=== PATIENT | female | born 2000 | race African-American/Black ===

== ENCOUNTER 2022-01-08 08:41 | Emergency (ER) | payer MEDICAID, SELFPAY ==
[2022-01-08 08:39] VITALS: BP 149/102; PULSE 70; RESP 16; O2SAT 99
[2022-01-08] MEDS: ONDANSETRON INJ 4 MG/2 ML VIAL IV PUSH (09:29)
[2022-01-08] MEDS: SODIUM CHLORIDE 0.9% IV 1,000 ML 999 ML IV CONT (09:29)
[2022-01-08 10:04] LABS: Basophils Percent Auto 0.3 % (0.2-1.2); Eosinophils Percent Auto 0.1 % (0-4.4); Hematocrit 43.7 % (37.0-47.0); Hemoglobin 14.8 g/dL (12.0-15.0); Immature Granulocyte Absolute 0.04 K/mm3 (0.00-0.031); Immature Granulocyte Percent A 0.4 % (0-0.5); Lymphocytes Absolute Auto 1.11 K/mm3 (0.9-3.2); Lymphocytes Percent Auto 11.5 % (18.3-44.2); Mean Corpuscular HGB Conc 33.9 g/dl (32-36); Mean Corpuscular Hemoglobin 29.9 pg (26-34); Mean Corpuscular Volume 88.3 fl (80-100); Mean Platelet Volume 10.2 fl (7.4-10.4); Monocytes Absolute Auto 0.6 K/mm3 (0.1-0.6); Monocytes Percent Auto 6.1 % (2.6-8.5); Neutrophils Absolute Auto 7.9 K/mm3 (1.3-6.7); Neutrophils Percent Auto 81.6 % (45.5-73.1); Platelet Count Result 324 k/mm3 (150-375); Red Blood Count 4.95 M/mm3 (4.2-5.4); Red Cell Distribution Width 11.8 % (11.5-14.5); White Blood Count 9.6 K/mm3 (4.5-10.0)
[2022-01-08 10:17] LABS: Add Urine Microscopic? YES; Appearance Urine Cloudy (Clear); Bacteria Urine 4+ /hpf; Bilirubin Urine Negative (Negative); Blood Urine Negative (Negative); Color Urine Yellow (Yellow); Glucose Urine UA Negative (Negative); Ketones Urine 1+ mg/dL (Negative); Leukocyte Esterase Ur 3+ LEU/UL (Negative); Mucus Urine Rare /lpf; Nitrate Urine Negative (Negative); Protein Urine 1+ mg/dL (Negative); Squamous Epithelial Cell Urine Many /hpf (Few); Urobilinogen Urine Negative mg/dL (<2.0); WBC Urine 31-50 /hpf
[2022-01-08 10:20] LABS: Alanine Aminotransferase 24 U/L (4-35); Albumin Level 4.8 g/dL (3.5-5.1); Alkaline Phosphatase 74 U/L (38-126); Anion Gap 12 mmol/L (8-16); Aspartate Amino Transferase 29 U/L (14-36); Bilirubin,Total 1.2 mg/dL (0.2-1.3); Blood Urea Nitrogen 15 mg/dL (7-17); Calcium 9.3 mg/dL (8.4-10.2); Carbon Dioxide 21 mmol/L (22-30); Chloride 101 mmol/L (98-107); Estimated CRCL calculation 85 ml/min; Estimated Glomerular Filt Rate > 60; Glucose 105 mg/dL (65-110); Potassium 3.3 mmol/L (3.4-5.0); Sodium 134 mmol/L (137-145)
[2022-01-08 10:50] VITALS: BP 137/90; PULSE 58; RESP 16; O2SAT 99
[2022-01-08 11:00] VITALS: BP 127/85; PULSE 53; RESP 15; O2SAT 100
[2022-01-08 11:03] LABS: Barbiturate Screen Urine Negative (Negative); Benzodiazepines Screen Urine Negative (Negative)
[2022-01-08] MEDS: DICYCLOMINE HCL INJ 20 MG/2 ML VIAL IM (11:04)
[2022-01-08 11:09] LABS: Amphetamine Screen Urine Negative (Negative); Cannabinoid Screen Urine Positive (Negative); Cocaine Screen Urine Negative (Negative); Methadone Screen Urine Negative (Negative); Phencyclidine Screen Urine Negative (Negative)
[2022-01-08 11:13] LABS: Opiate Screen Urine Negative (Negative)
[2022-01-08 12:40] VITALS: BP 130/70; PULSE 64; RESP 16; O2SAT 98
--- NOTE | 2022-01-08 19:21 | ED.GENADULT ---
HPI - General Adult General Chief complaint: Unspecified Stated complaint: AVILA, HANGOVER? Time Seen by Provider: 01/08/22 09:10 Source: patient Mode of arrival: ambulatory Limitations: no limitations History of Present Illness HPI narrative: Patient is 21-year-old female with chief complaint of nausea, abdominal cramping and vomiting after drinking alcohol throughout the weekend and using marijuana. Patient reports that she has stopped using substances quite some time they gave it over the weekend. Patient denies any other recreational drug use. Patient denies localized abdominal pain. She reports diffuse cramping. Patient denies any fevers, chills, chest pain or shortness of breath. Related Data Home Medications Medication Instructions Recorded Confirmed aripiprazole mg 01/08/22 01/08/22 hydroxyzine HCl 01/08/22 lamotrigine 01/08/22 trazodone 01/08/22 Allergies Allergy/AdvReac Type Severity Reaction Status Date / Time No Known Allergies Allergy Verified 01/08/22 08:47 Review of Systems Review of Systems: CONSTITUTIONAL: Denies fever, chills, or sweats. EYES: Denies visual changes, redness, or discharge. ENT: Denies rhinorrhea, congestion, sore throat, or otalgia. CARDIOVASCULAR: Denies chest pain, palpitations, or edema. RESPIRATORY: Denies cough or dyspnea. GASTROINTESTINAL: Reports abdominal pain, nausea, vomiting, denies diarrhea. GENITOURINARY: Denies dysuria or hematuria. SKIN: Denies rash or itching. MUSCULOSKELETAL: Denies back pain, joint pain, or myalgia. NEUROLOGIC: Denies headache, numbness, dizziness, or weakness. PSYCHIATRIC: Denies anxiety or depression. Exam Narrative: GENERAL: Appears uncomfortable. HEAD: Normocephalic, atraumatic. EYES: PERRLA and EOMI. CHEST: Clear to auscultation. No respiratory distress. No wheezes rales or rhonchi HEART: Regular rate and rhythm. No murmur heard. Normal peripheral pulses. ABDOMEN: Soft, diffuse tender, nondistended, normal active bowel sounds. EXTREMITIES: Normal range of motion. No edema. SKIN: Warm, dry, no rash. NEURO: No focal deficits. Alert and oriented x3. PSYCH: Normal mood and affect. Course Vital Signs Vital signs: Vital Signs Pulse Rate 70 01/08/22 08:39 Respiratory Rate 16 01/08/22 08:39 Blood Pressure 149/102 H 01/08/22 08:39 Pulse Oximetry 99 01/08/22 08:39 Pulse Rate 64 01/08/22 12:40 Respiratory Rate 16 01/08/22 12:40 Blood Pressure 130/70 01/08/22 12:40 Pulse Oximetry 98 01/08/22 12:40 Medical Decision Making MDM Narrative Medical decision making narrative: Patient given Bentyl for abdominal cramping. Patient given fluids and Zofran. Patient passed p.o. challenge. Patient given Macrobid for UTI. Patient vital signs are stable. Patient's lab work suggest she is a candidate for outpatient treatment. Patient instructed to avoid illicit substances, stay hydrated, treat her UTI and follow-up with her primary care for reevaluation. Patient has been instructed to return to emergency department should she develop any emergent symptoms. Vital Signs Vital Signs: Vital Signs Pulse Rate 70 01/08/22 08:39 Respiratory Rate 16 01/08/22 08:39 Blood Pressure 149/102 H 01/08/22 08:39 Pulse Oximetry 99 01/08/22 08:39 Pulse Rate 64 01/08/22 12:40 Respiratory Rate 16 01/08/22 12:40 Blood Pressure 130/70 01/08/22 12:40 Pulse Oximetry 98 01/08/22 12:40 Lab Data Result diagrams: 01/08/22 09:54 01/08/22 09:54 Labs: Lab Results 01/08/22 01/08/22 01/08/22 Range/Units 09:54 09:54 10:00 WBC 9.6 (4.5-10.0) K/mm3 RBC 4.95 (4.2-5.4) M/mm3 Hgb 14.8 (12.0-15.0) g/dL Hct 43.7 (37.0-47.0) % MCV 88.3 (80-100) fl MCH 29.9 (26-34) pg MCHC 33.9 (32-36) g/dl RDW 11.8 (11.5-14.5) % Plt Count 324 (150-375) k/mm3 MPV 10.2 (7.4-10.4) fl Immature Gran % (Auto) 0.4 (0-0.5) % Neut % (Auto) 81.6 H (
== END 2022-01-08 12:40 | disposition home or self-care (01) ==
PROVIDERS: Physician Assistant; Emergency Provider Emergency Medicine
DX: N30.00 Acute cystitis without hematuria (principal)
CPT/HCPCS: 36415; 80053; 80307; 81001; 81025; 85025; 87086; 87088; 96361; 96365; 96372; 96375; 99284; J0131; J0500; J2405; J7030